=== PATIENT | male | born 1965 | race Caucasian/White ===

== ENCOUNTER → 2016-10-26 | Outpatient (CLI) | payer BC ==
[~2016-10-26] MED LIST: LIDOCAINE 1% MDV 20ML VIAL As Ordered ONE; LIDOCAINE 4% CREAM 5GM (LMX4) As Ordered ONE; SODIUM TETRADECYL SULFATE(3%)30MG/ML 2ML VIAL (SOTRADECOL) As Ordered ONE
--- NOTE | 2016-10-26 13:06 | REPKIM ---
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 Ultrasound reflux evaluation showed severe reflux in the greater saphenous vein and anterior accessory greater saphenous vein. This also showed incompetent race and sports book writer vein at the calf level. Reflux of 6.9 seconds was observed in the anterior accessory greater saphenous vein. 2.3-second duration reflux was observed in the greater saphenous vein at the saphenofemoral junction. The GSV measures 7.8 mm in AP dimension at this level. 6 seconds of reflux was observed in the greater saphenous vein at mid thigh where the vein measures 5.4 mm. 7.1-second duration reflux was observed in the greater saphenous vein at the knee where the vein measures 5.0 mm. Patient has failed conservative treatment; c/o persistent symptoms that are refractory more than a 3 month course of conservative therapy; utilization of compressive stockings and leg elevation. PROCEDURE: 1. Endovenous laser ablation therapy of the incompetent GSV on the left 2. Sclerotherapy of the incompetent significant aa GSV distribution lateral thigh/lateral calf varicosities on the left 3. 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 Lot#[id number] TECHNIQUE AND FINDINGS: Informed consent was obtained prior to the procedure. The patient was placed supine on the table. A time out was performed that verified correct procedure, site, side and materials available. Ultrasound examination was performed and focused on the saphenofemoral junction of the left leg. This confirmed significant reflux involving the greater saphenous vein as previously described. This also showed significant reflux involving aaGSV with significant varicosities extending into the lateral thigh/below knee. The aa GSV distribution varicosities showed marked tortuosity and not suitable for EVLT. US also localized incompetent race and sports book writer and significant varicosities at the medial calf level. The left lower extremity was prepped and draped in the usual sterile fashion. After local anesthesia with 1mL of lidocaine 1% at the skin, the incompetent greater saphenous vein just above the knee level was accessed with a 21 gauge needle and a 0.018" wire followed by a 4 Lao sheath of the EVLT kit. The sheath was advanced over the wire to the saphenofemoral junction level and the laser fiber was advanced coaxially and its tip was positioned approximately 5 cm distal from the saphenofemoral junction. Tumescent anesthesia was given along this vein by using real-time ultrasonographic guidance and a 22 gauge spinal needle and a mixture of diluted lidocaine (12.5mL @ 2% in 237.5mL of normal saline). Endovenous laser ablation was applied along the greater saphenous vein using 6 Pike in continuous mode for a total duration of 269 seconds. A total of 1611 Joules was delivered. Significant tortuous varicosities in the aa GSV at the proximal thigh was then accessed with a micropuncture needle. A microcatheter was then placed over a guidewire. Approximately 2 mL of sclerotherapy foam (1mL sodium tetradecyl sulfate diluted at 1.5 %) mixed with air at a ratio of 1:4 injected. Compression was maintained at the saphenofemoral junction to prevent non-target sclerosis. Significant tortuous varicosities in the aa GSV tributaries in the lateral distal thigh extending below knee level was then accessed with a butterfly needle. Approximately 2 mL of sclerotherapy foam (1mL sodium tetradecyl sulfate diluted at 1.5 %) mixed with air at a ratio of 1:4 injected. Compression was maintained. Significant varicosities/incompetent race and sports book writer in the medial calf level was then accessed with a butterfly needle. Approximately 2 mL of sclerotherapy foam (1mL sodium tetradecyl sulfate diluted at 1.5 %) mixed with air at a ratio of 1: 4 injected. Compression was maintained. SteriStrips was applied on the skin, followed by 20-30 mm Hg compression stockings. The patient was then allowed to stand and instructed to walk for 15 minutes. He was then discharged back home in good and stable condition with no immediate complication. This procedure was performed with ultrasound guidance. Dr. Conroy was present. IMPRESSION: 1. Bilateral lower extremity symptomatic painful varicose veins and other complications. 2. Successful treatment of symptomatic incompetent GSV in the left lower extremity by endovenous laser ablation. 3. Significant left lower extremity incompetent aa GSV distribution in the lateral thigh and incompetent race and sports book writer in the medial calf/significant varicosities also treated with sclerotherapy as discussed above. PLAN: Pt was given post-procedure instructions, including contact information for a follow-up duplex ultrasound of the left lower extremity to rule out DVT and post EVLT/sclerotherapy evaluation in next several days. Plan to treat the right lower extremity in next several weeks. cc: ALIREZA Rincon [facility]ITALGoyo
== END | disposition home or self-care (01) ==
LOC: M IRPRO 08:02
DX: I83.813 Varicose veins of bilateral lower extremities with pain (principal); I83.893 Varicose veins of bilateral lower extremities with other complications
CPT/HCPCS: 36471; 36478; C1888; C1894

== ENCOUNTER → 2016-10-29 | Outpatient (CLI) | payer BC ==
--- NOTE | 2016-10-29 10:46 | REP ---
LEFT LOWER EXTREMITY DOPPLER VENOUS ULTRASOUND: 10/29/2016. Comparison: 07/02/2016. Clinical history: Status post EVLT left lower extremity, evaluate for DVT or other. Findings: Sonographic evaluation with standard duplex techniques through the deep venous system from the groin to popliteal fossa and proximal calf show the deep veins fully compressible throughout their course. There is respiratory variation and augmented flow from the common femoral through popliteal vein at its trifurcation. There is respiratory variation and augmented flow and color is maintained throughout the deep system. Greater saphenous vein is fully clotted now as would be expected post EVLT. There is a clotted collateral in the medial upper calf. At the lateral thigh, the prominent vascularity is clotted from the previous puncture site inferiorly but is patent in its proximal portion. Impression: 1. No ultrasound evidence of DVT in the left lower extremity. 2. There is a clotting of the GSV as expected as well as a medial calf collateral vein also clotted. 3. The lateral thigh varicosity is clotted from its puncture site inferiorly while its portion proximal to that puncture site remains patent. Signed by Kenneth Laughlin MD 10/29/2016 04:20 P
== END ==
LOC: M RAD 08:20
DX: I83.92 Asymptomatic varicose veins of left lower extremity (principal)

== ENCOUNTER → 2016-11-23 | Outpatient (CLI) | payer BC ==
[~2016-11-23] MED LIST changes: -LIDOCAINE 1% MDV 20ML VIAL As Ordered ONE; +LIDOCAINE 2% MDV 20 ML VIAL As Ordered ONE
--- NOTE | 2016-11-23 12:45 | REPKIM ---
INDICATION: Patient with symptomatic painful bilateral lower extremity varicose veins and complications present for right lower extremity EVLT of the incompetent GSV, possible sclerotherapy of collateral tributaries. Patient underwent successful EVLT/sclerotherapy of the left lower extremity on 10/26/16 and now returns for his right lower extremity treatment. Duplex reflux study of the right leg showed significant reflux involving the greater saphenous vein. The right GSV at the saphenofemoral junction showed reflux with duration of 4.7 seconds and AP diameter 6.0 mm, and at the level of the mid thigh for a duration of 7.2 seconds with AP diameter 5.2 mm. The distal GSV with reflux duration of 2.7 seconds with AP diameter of 7.9 mm. Patient has failed conservative treatment; utilization of compressive stockings and leg elevation. PROCEDURE: Endovenous laser ablation therapy of the incompetent GSV on the right INTERVENTIONALIST: Jayleen Conroy MD EBL: 5 mL MEDICATIONS: Local Lidocaine and Sodium Tetradecyl Sulfate 3% diluted to 1.5% DEVICE USED: 45-CM [facility]ure EVLT [facility] Lot#[id number] TECHNIQUE AND FINDINGS: Informed consent was obtained prior to the procedure. The patient was placed supine on the table. A time out was performed that verified correct procedure, site, side and materials available. Ultrasound examination was performed and focused on the saphenofemoral junction of the right leg. This confirmed significant reflux involving the greater saphenous vein as previously described. Collateral tributary varicosities noted in the distal thigh extending below. The right lower extremity was prepped and draped in the usual sterile fashion. After local anesthesia with 1mL of lidocaine 1% at the skin, the incompetent greater saphenous vein/collateral vein above the knee level was accessed with a 21 gauge needle and a 0.018" wire followed by a 4 Mongolian sheath of the EVLT kit. The sheath was advanced over the wire to the saphenofemoral junction level and the laser fiber was advanced coaxially and its tip was positioned approximately 5 cm distal from the saphenofemoral junction. Tumescent anesthesia was given along this vein by using real-time ultrasonographic guidance and a 22 gauge spinal needle and a mixture of diluted lidocaine (12.5mL @ 2% in 237.5mL of normal saline). Endovenous laser ablation was applied along the greater saphenous vein using 6 Pike in continuous mode for a total duration of 195.6 seconds. A total of 1173 Joules was delivered. Ultrasonography showed shrunken and hyper-echoic of the ablated vein as usually , with persistent fully compressibility of deep veins. The introducer sheath was then withdrawn and positioned in the distal thigh collateral varicosity. Approximately 2 mL of sclerotherapy foam (1mL sodium tetradecyl sulfate diluted at 1.5 %) mixed with air at a ratio of 1:4 injected. Compression was maintained. SteriStrips was applied on the skin, followed by 20-30 mm Hg compression stockings. The patient was then allowed to stand and instructed to walk for 15 minutes. He was then discharged back home in good and stable condition with no immediate complication. This procedure was performed with ultrasound guidance. Dr. Conroy was present. IMPRESSION: 1. Bilateral lower extremity symptomatic painful varicose veins and other complications. Patient underwent successful EVLT/sclerotherapy of the left leg in Oct 2016. 2. Successful treatment of symptomatic incompetent GSV in the right lower extremity by endovenous laser ablation and sclerotherapy as discussed above. PLAN: Pt was given post-procedure instructions, including contact information for a follow-up duplex ultrasound of the right lower extremity to rule out DVT and post EVLT/sclerotherapy evaluation in next several days. cc: ALIREZA Rincon
== END | disposition home or self-care (01) ==
LOC: M IRPRO 08:03
DX: I83.813 Varicose veins of bilateral lower extremities with pain (principal); I83.893 Varicose veins of bilateral lower extremities with other complications; I82.409 Acute embolism and thrombosis of unspecified deep veins of unspecified lower extremity
CPT/HCPCS: 36478; C1888

== ENCOUNTER → 2016-11-26 | Outpatient (CLI) | payer BC ==
--- NOTE | 2016-11-26 10:48 | REP ---
Right lower extremity Duplex Doppler venous ultrasound: Real time compression and duplex Doppler interrogation of the right lower extremity deep venous system is performed. The right common femoral, superficial femoral and popliteal veins are fully compressible with transducer pressure and demonstrate normal spontaneous and phasic flow, without evidence of deep venous thrombosis. Impression: No evidence of deep venous thrombosis of the right lower extremity femoral popliteal venous system. There is thrombus in the greater saphenous vein as expected, 1.2 cm from the saphenofemoral junction. Signed by Surjit Hillman MD 11/26/2016 10:38 A
== END ==
LOC: M RAD 09:33
DX: I82.811 Embolism and thrombosis of superficial veins of right lower extremity (principal)

== ENCOUNTER 2017-02-23 07:54 | Emergency (ER) | payer BC ==
[~2017-02-23] VITALS: Ht 185.4 cm; Wt 95.3 kg
[2017-02-23] MEDS ORDERED: METHOCARBAMOL 500 MG TAB PO ONE (09:30)
[2017-02-23] MEDS ORDERED: KETOROLAC 60 MG/2 ML VIAL (J1885) IM ONE (09:30)
[2017-02-23] MEDS ORDERED: ROBA500T PO (09:33)
[2017-02-23] MEDS ORDERED: IBUP80TA PO (09:33)
[2017-02-23 09:57] VITALS: BP 144/91
== END 2017-02-23 09:58 | disposition home or self-care (01) ==
LOC: M ED 08:39
DX: S39.012A Strain of muscle, fascia and tendon of lower back, initial encounter (principal); X58.XXXA Exposure to other specified factors, initial encounter; Y92.89 Other specified places as the place of occurrence of the external cause; Y93.89 Activity, other specified; Y99.8 Other external cause status
CPT/HCPCS: 96372; 99282; J1885

== ENCOUNTER → 2019-03-31 | Outpatient (REF) | payer OTHER ==
[~2019-03-31] MED LIST changes: +IBUP80TA PO; -LIDOCAINE 2% MDV 20 ML VIAL As Ordered ONE; -LIDOCAINE 4% CREAM 5GM (LMX4) As Ordered ONE; +ROBA500T PO; -SODIUM TETRADECYL SULFATE(3%)30MG/ML 2ML VIAL (SOTRADECOL) As Ordered ONE
[2019-03-31 11:48] LABS: BASO % 0.4 % (0.0-1.0); HEMATOCRIT 42.6 % (42.0-52.0); HEMOGLOBIN 14.7 g/dl (13.5-17.5); LYMPH % 42.2 % (24.0-44.0); MEAN CORPUSCULAR HEMOGLOBIN 30.9 pg (27.0-33.0); MEAN CORPUSCULAR HGB CONC 34.5 g/dl (32.0-36.5); MEAN CORPUSCULAR VOLUME 89.5 fl (80.0-96.0); MONO # 0.5 10^3/uL (0.0-0.8); MONO % 9.8 % (0.0-5.0); NEUTROPHILS # 2.3 10^3/uL (1.8-7.7); NEUTROPHILS % 47.6 % (36.0-66.0); PLATELET COUNT, AUTOMATED 233 10^3/uL (150-450); RED BLOOD COUNT 4.76 10^6/uL (4.30-6.10); WHITE BLOOD COUNT 4.8 10^3/uL (4.0-10.0)
[2019-03-31 12:05] LABS: ALBUMIN 3.8 GM/DL (3.2-5.2); ALT/SGPT 105 U/L (12-78); BILIRUBIN,TOTAL 0.6 MG/DL (0.2-1.0); BLOOD UREA NITROGEN 18 MG/DL (7-18); CALCIUM LEVEL 8.7 MG/DL (8.5-10.1); CARBON DIOXIDE LEVEL 27 MEQ/L (21-32); CHLORIDE LEVEL 109 MEQ/L (98-107); CHOLESTEROL LEVEL 221 MG/DL (<200); CHOLESTEROL RISK RATIO 7.366 (<5); CREATININE FOR GFR 0.92 MG/DL (0.70-1.30); FREE T4 0.85 NG/DL (0.76-1.46); GLOMERULAR FILTRATION RATE > 60.0 (>56); GLUCOSE, FASTING 117 MG/DL (70-100); HDL CHOLESTEROL 30 MG/DL (>40); LDL CHOLESTEROL 130 MG/DL (<100); NON-HDL-C 191 MG/DL; POTASSIUM SERUM 3.9 MEQ/L (3.5-5.1); SODIUM LEVEL 142 MEQ/L (136-145); TOTAL PROTEIN 7.5 GM/DL (6.4-8.2); TRIGLYCERIDES LEVEL 307 MG/DL (<150)
[2019-03-31 12:06] LABS: HEMOGLOBIN A1c 5.9 %
== END ==
LOC: M SFHCCLAY 08:47
PROVIDERS: ATTEND Nurse Practitioner Family
DX: E78.5 Hyperlipidemia, unspecified (principal); K21.9 Gastro-esophageal reflux disease without esophagitis; R73.01 Impaired fasting glucose; K76.0 Fatty (change of) liver, not elsewhere classified

== ENCOUNTER → 2019-05-01 | Outpatient (CLI) | payer OTHER ==
[~2019-05-01] MED LIST changes: +ATOR40TA75 PO
[2019-05-01 10:55] LABS: ALBUMIN 4.2 GM/DL (3.2-5.2); ALT/SGPT 87 U/L (12-78); BILIRUBIN,TOTAL 0.6 MG/DL (0.2-1.0); BLOOD UREA NITROGEN 16 MG/DL (7-18); CALCIUM LEVEL 9.1 MG/DL (8.5-10.1); CARBON DIOXIDE LEVEL 28 MEQ/L (21-32); CHLORIDE LEVEL 108 MEQ/L (98-107); CHOLESTEROL LEVEL 161 MG/DL (<200); CHOLESTEROL RISK RATIO 4.128 (<5); CREATININE FOR GFR 0.93 MG/DL (0.70-1.30); GLOMERULAR FILTRATION RATE > 60.0 (>56); GLUCOSE, FASTING 91 MG/DL (70-100); HDL CHOLESTEROL 39 MG/DL (>40); LDL CHOLESTEROL 99 MG/DL (<100); NON-HDL-C 122 MG/DL; POTASSIUM SERUM 4.1 MEQ/L (3.5-5.1); SODIUM LEVEL 142 MEQ/L (136-145); TOTAL PROTEIN 7.7 GM/DL (6.4-8.2); TRIGLYCERIDES LEVEL 114 MG/DL (<150)
== END ==
LOC: M LAB 09:08
PROVIDERS: ATTEND Nurse Practitioner Family
DX: E78.5 Hyperlipidemia, unspecified (principal)

== ENCOUNTER 2019-08-27 07:46 | Day surgery (SDC) | payer OTHER ==
[~2019-08-27] VITALS: Ht 185.4 cm; Wt 96.6 kg
[~2019-08-27 07:46] MED LIST changes: +NS 1,000 ML IV ONE
[2019-08-27] MEDS ORDERED: PROPOFOL 200 MG/20 ML VIAL As Ordered ONE (08:33)
--- NOTE | 2019-08-27 09:28 | ROOR ---
Patient Name: Angel Santizo Procedure Date: 08/27/2019 8:42 AM Date of : 1965 Age: 54 Room: [facility] Gender: Male Note Status: Finalized Procedure: Colonoscopy Indications: Screening for colorectal malignant neoplasm Providers: Walt Wan MD Referring MD: NATHAN Arriaga Requesting Provider: Medicines: Monitored Anesthesia Care Complications: No immediate complications. Procedure: Pre-Anesthesia Assessment: - Prior to the procedure, a History and Physical was performed, and patient medications and allergies were reviewed. The patient is competent. The risks and benefits of the procedure and the sedation options and risks were discussed with the patient. All questions were answered and informed consent was obtained. Patient identification and proposed procedure were verified by the physician, the nurse and the anesthesiologist in the procedure room. Mental Status Examination: alert and oriented. Airway Examination: normal oropharyngeal airway and neck mobility. Respiratory Examination: clear to auscultation. CV Examination: normal. Prophylactic Antibiotics: The patient does not require prophylactic antibiotics. Prior Anticoagulants: The patient has taken no previous anticoagulant or antiplatelet agents. ASA Grade Assessment: II - A patient with mild systemic disease. After reviewing the risks and benefits, the patient was deemed in satisfactory condition to undergo the procedure. The anesthesia plan was to use monitored anesthesia care (MAC). Immediately prior to administration of medications, the patient was re-assessed for adequacy to receive sedatives. The heart rate, respiratory rate, oxygen saturations, blood pressure, adequacy of pulmonary ventilation, and response to care were monitored throughout the procedure. The physical status of the patient was re-assessed after the procedure. The Colonoscope was introduced through the anus and advanced to the terminal ileum, with identification of the appendiceal orifice and IC valve. The colonoscopy was performed without difficulty. The patient tolerated the procedure well. The quality of the bowel preparation was good. The ileocecal valve, appendiceal orifice, and rectum were photographed. Scope insertion time was 4 minutes. Scope withdrawal time was 10 minutes. The total duration of the procedure was 14 minutes. Findings: The perianal and digital rectal examinations were normal. The terminal ileum appeared normal. Two sessile polyps were found in the ascending colon. The polyps were 5 to 8 mm in size. These polyps were removed with a cold snare. Resection and retrieval were complete. Verification of patient identification for the specimen was done by the physician and nurse using the patient's name, date and medical record number. Estimated blood loss was minimal. A 4 mm polyp was found in the descending colon. The polyp was sessile. The polyp was removed with a cold snare. Resection and retrieval were complete. Two sessile polyps were found in the recto-sigmoid colon. The polyps were 4 to 6 mm in size. These polyps were removed with a cold snare. Resection and retrieval were complete. Non-bleeding external and internal hemorrhoids were found during retroflexion. The hemorrhoids were medium-sized. Impression: - The examined portion of the ileum was normal. - Two 5 to 8 mm polyps in the ascending colon, removed with a cold snare. Resected and retrieved. - One 4 mm polyp in the descending colon, removed with a cold snare. Resected and retrieved. - Two 4 to 6 mm polyps at the recto-sigmoid colon, removed with a cold snare. Resected and retrieved. - Non-bleeding external and internal hemorrhoids. Recommendation: - Patient has a contact number available for emergencies. The signs and symptoms of potential delayed complications were discussed with the patient. Return to normal activities tomorrow. Written discharge instructions were provided to the patient. - High fiber diet. - Continue present medications. - Await pathology results. - Use fiber, for example Citrucel, Fibercon, Konsyl or Metamucil. - Repeat colonoscopy in 3 - 5 years for surveillance based on pathology results. - Telephone GI clinic for pathology results in 2 weeks. - Return to primary care physician. Walt Wan MD Walt Wan MD 08/27/2019 9:27:47 AM Electronically signed by Walt Wan MD Number of Addenda: 0 Note Initiated On: 08/27/2019 8:42 AM Estimated Blood Loss: Estimated blood loss was minimal.
[2019-08-27 09:45] VITALS: BP 135/83
== END 2019-08-27 09:58 | disposition home or self-care (01) ==
LOC: M OPP 07:46
PROVIDERS: ATTEND Internal Medicine Gastroenterology
DX: Z12.11 Encounter for screening for malignant neoplasm of colon (principal); K64.8 Other hemorrhoids; D12.2 Benign neoplasm of ascending colon; D12.7 Benign neoplasm of rectosigmoid junction; D12.4 Benign neoplasm of descending colon; E78.5 Hyperlipidemia, unspecified; F32.9 Major depressive disorder, single episode, unspecified; Z79.899 Other long term (current) drug therapy

== ENCOUNTER 2020-11-21 07:41 | Emergency (ER) | payer OTHER ==
[~2020-11-21] VITALS: Ht 185.4 cm; Wt 106.6 kg
[~2020-11-21 07:41] MED LIST changes: -NS 1,000 ML IV ONE
--- NOTE | 2020-11-21 08:36 | REP ---
INDICATION: trauma, right posterior ribs COMPARISON: None. TECHNIQUE: Frontal view of the chest with multiple views of the right hemithorax. Five total views. FINDINGS: Frontal view of the chest demonstrates no acute cardiopulmonary process, contusion, effusion, or pneumothorax. Multiple views of the right hemithorax demonstrates no acute rib fracture/injury or pathology. IMPRESSION: Normal rib series. <Electronically signed by Krzysztof Milner > 11/21/20 0832
[2020-11-21 09:00] VITALS: BP 134/79
== END 2020-11-21 09:17 | disposition home or self-care (01) ==
LOC: M ED 07:41
DX: S23.41XA Sprain of ribs, initial encounter (principal); W00.0XXA Fall on same level due to ice and snow, initial encounter; Y92.9 Unspecified place or not applicable; Y93.9 Activity, unspecified; Y99.0 Civilian activity done for income or pay

== ENCOUNTER → 2020-12-02 | Outpatient (REF) | payer OTHER ==
[2020-12-02 13:30] LABS: ALBUMIN 4.3 GM/DL (3.2-5.2); ALT/SGPT 63 U/L (12-78); BILIRUBIN,TOTAL 0.5 MG/DL (0.2-1.0); BLOOD UREA NITROGEN 22 MG/DL (7-18); CALCIUM LEVEL 9.6 MG/DL (8.5-10.1); CARBON DIOXIDE LEVEL 31 MEQ/L (21-32); CHLORIDE LEVEL 109 MEQ/L (98-107); CHOLESTEROL LEVEL 229 MG/DL (<200); CHOLESTEROL RISK RATIO 5.725 (<5); CREATININE FOR GFR 1.11 MG/DL (0.70-1.30); GLOMERULAR FILTRATION RATE > 60.0 (>56); GLUCOSE, FASTING 92 MG/DL (70-100); HDL CHOLESTEROL 40 MG/DL (>40); LDL CHOLESTEROL 150 MG/DL (<100); NON-HDL-C 189 MG/DL; POTASSIUM SERUM 4.6 MEQ/L (3.5-5.1); SODIUM LEVEL 143 MEQ/L (136-145); TOTAL PROTEIN 7.8 GM/DL (6.4-8.2); TRIGLYCERIDES LEVEL 197 MG/DL (<150)
[2020-12-02 14:06] LABS: HEMOGLOBIN A1c 6.6 %
== END ==
LOC: M SFHCADAM 08:06
PROVIDERS: ATTEND Physician Assistant Medical
DX: K76.0 Fatty (change of) liver, not elsewhere classified (principal); R73.01 Impaired fasting glucose

== ENCOUNTER → 2021-01-25 | Outpatient (REF) | payer OTHER | LOC: M SFHCADAM 15:39 | PROVIDERS: ATTEND Physician Assistant Medical | DX: E03.9 Hypothyroidism, unspecified (principal) ==

== ENCOUNTER → 2021-03-08 | Outpatient (REF) | payer OTHER ==
[2021-03-08 12:21] LABS: FREE T4 1.07 NG/DL (0.76-1.46); THYROID STIMULATING HORMONE 3.65 uIU/ML (0.358-3.740)
== END ==
LOC: M SFHCADAM 09:06
PROVIDERS: ATTEND Physician Assistant Medical
DX: E03.9 Hypothyroidism, unspecified (principal)

== ENCOUNTER → 2022-12-20 | Outpatient (CLI) | payer OTHER ==
[2022-12-20 16:30] LABS: HEMATOCRIT 43.3 % (42.0-52.0); HEMOGLOBIN 14.4 g/dl (13.5-17.5); MEAN CORPUSCULAR HEMOGLOBIN 29.3 pg (27.0-33.0); MEAN CORPUSCULAR HGB CONC 33.3 g/dl (32.0-36.5); MEAN CORPUSCULAR VOLUME 88.2 fl (80.0-96.0); PLATELET COUNT, AUTOMATED 238 10^3/uL (150-450); RED BLOOD COUNT 4.91 10^6/uL (4.30-6.10); WHITE BLOOD COUNT 6.2 10^3/uL (4.0-10.0)
[2022-12-20 16:39] LABS: HEMOGLOBIN A1c 5.5 % (4.0-6.0)
[2022-12-20 16:52] LABS: PROSTATIC SPECIFIC AG MONITOR 0.17 NG/ML (< 4.00)
[2022-12-20 16:56] LABS: TESTOSTERONE 48 NG/DL (241-827); THYROID STIMULATING HORMONE 2.995 uIU/ML (0.55-4.78)
[2022-12-20 16:57] LABS: ALBUMIN 4.5 G/DL (3.2-5.2); ALKALINE PHOSPHATASE 69 U/L (46-116); ALT/SGPT 43 U/L (7.0-40); AST/SGOT 34 U/L (<34); BILIRUBIN,TOTAL 0.7 MG/DL (0.3-1.2); BLOOD UREA NITROGEN 14 MG/DL (9-23); CALCIUM LEVEL 9.9 MG/DL (8.5-10.1); CARBON DIOXIDE LEVEL 32 MMOL/L (20-31); CHLORIDE LEVEL 105 MMOL/L (98-107); CHOLESTEROL LEVEL 239 MG/DL (<200); CHOLESTEROL RISK RATIO 5.06 (<5); CREATININE FOR GFR 0.78 MG/DL (0.70-1.30); GLOMERULAR FILTRATION RATE > 60.0 (>56); GLUCOSE, FASTING 86 MG/DL (60-100); HDL CHOLESTEROL 47.2 MG/DL (>40); LDL CHOLESTEROL 150.4 MG/DL (<100); NON-HDL-C 191.8 MG/DL; SODIUM LEVEL 139 MMOL/L (136-145); TOTAL PROTEIN 7.9 G/DL (5.7-8.2); TRIGLYCERIDES LEVEL 207 MG/DL (<150)
== END ==
LOC: M RAD 15:03
PROVIDERS: ATTEND Family Medicine
DX: I10 Essential (primary) hypertension (principal)

== ENCOUNTER → 2023-01-28 | Outpatient (CLI) | payer OTHER | LOC: M WHC 13:21 | PROVIDERS: ATTEND Family Medicine | DX: N63.20 Unspecified lump in the left breast, unspecified quadrant (principal) | CPT/HCPCS: 77066; G0279 ==

== ENCOUNTER → 2023-12-05 | Outpatient (CLI) | payer OTHER ==
[2023-12-05 09:42] LABS: HEMATOCRIT 41.8 % (42.0-52.0); MEAN CORPUSCULAR HEMOGLOBIN 29.6 pg (27.0-33.0); MEAN CORPUSCULAR HGB CONC 33.5 g/dl (32.0-36.5); MEAN CORPUSCULAR VOLUME 88.4 fl (80.0-96.0); PLATELET COUNT, AUTOMATED 221 10^3/uL (150-450); RED BLOOD COUNT 4.73 10^6/uL (4.30-6.10)
[2023-12-05 09:58] LABS: HEMOGLOBIN A1c 5.8 % (4.0-6.0)
[2023-12-05 10:05] LABS: PROSTATIC SPECIFIC AG MONITOR 0.11 NG/ML (< 4.00)
[2023-12-05 10:08] LABS: THYROID STIMULATING HORMONE 2.825 uIU/ML (0.55-4.78)
[2023-12-05 10:10] LABS: ALBUMIN 4.1 G/DL (3.2-5.2); ALKALINE PHOSPHATASE 66 U/L (46-116); ALT/SGPT 48 U/L (7.0-40); AST/SGOT 35 U/L (<34); BILIRUBIN,TOTAL 0.5 MG/DL (0.3-1.2); BLOOD UREA NITROGEN 21 MG/DL (9-23); CALCIUM LEVEL 9.5 MG/DL (8.5-10.1); CARBON DIOXIDE LEVEL 31 MMOL/L (20-31); CHLORIDE LEVEL 108 MMOL/L (98-107); CHOLESTEROL LEVEL 152 MG/DL (<200); CHOLESTEROL RISK RATIO 3.84 (<5); CREATININE FOR GFR 0.87 MG/DL (0.70-1.30); GLOMERULAR FILTRATION RATE > 60.0 (>56); GLUCOSE, FASTING 96 MG/DL (60-100); HDL CHOLESTEROL 39.5 MG/DL (>40); LDL CHOLESTEROL 77.3 MG/DL (<100); NON-HDL-C 112.5 MG/DL; POTASSIUM SERUM 4.5 MMOL/L (3.5-5.1); SODIUM LEVEL 143 MMOL/L (136-145); TESTOSTERONE 27 NG/DL (241-827); TOTAL PROTEIN 7.1 G/DL (5.7-8.2); TRIGLYCERIDES LEVEL 176 MG/DL (<150)
== END ==
LOC: M LAB 09:01
PROVIDERS: ATTEND Family Medicine
DX: R53.83 Other fatigue (principal); I10 Essential (primary) hypertension; E03.9 Hypothyroidism, unspecified

== ENCOUNTER → 2024-03-09 | Outpatient (CLI) | payer OTHER ==
[2024-03-09 08:57] LABS: TESTOSTERONE 38 NG/DL (241-827); THYROID STIMULATING HORMONE 5.571 uIU/ML (0.55-4.78)
[2024-03-09 09:15] LABS: HEPATITIS B SURFACE ANTIGEN NEGATIVE (NEGATIVE)
[2024-03-09 09:36] LABS: HEPATITIS B CORE ANTIBODY IGM NEGATIVE (NEGATIVE)
== END ==
LOC: M LAB 06:30
PROVIDERS: ATTEND Family Medicine
DX: R53.83 Other fatigue (principal)

== ENCOUNTER → 2025-01-28 | Outpatient (CLI) | payer OTHER ==
[~2025-01-28] MED LIST changes: +LISI10TA22 PO; +SIMV20TA22 PO; +SYNT75TA PO; +TEST200I14 IM
[2025-01-28 12:34] LABS: HEMATOCRIT 47.8 % (42.0-52.0); HEMOGLOBIN 16.2 g/dl (13.5-17.5); MEAN CORPUSCULAR HEMOGLOBIN 29.6 pg (27.0-33.0); MEAN CORPUSCULAR HGB CONC 33.9 g/dl (32.0-36.5); MEAN CORPUSCULAR VOLUME 87.4 fl (80.0-96.0); PLATELET COUNT, AUTOMATED 207 10^3/uL (150-450); RED BLOOD COUNT 5.47 10^6/uL (4.30-6.10); WHITE BLOOD COUNT 6.4 10^3/uL (4.0-10.0)
[2025-01-28 12:50] LABS: HEMOGLOBIN A1c 5.6 % (4.0-6.0)
[2025-01-28 13:10] LABS: ALBUMIN 4.1 G/DL (3.2-5.2); ALKALINE PHOSPHATASE 63 U/L (40-129); ALT/SGPT 31 U/L (7.0-40); AST/SGOT 22 U/L (<34); BILIRUBIN,TOTAL 0.8 MG/DL (0.3-1.2); BLOOD UREA NITROGEN 10 MG/DL (9-23); CALCIUM LEVEL 9.7 MG/DL (8.5-10.1); CARBON DIOXIDE LEVEL 32 MMOL/L (20-31); CHLORIDE LEVEL 104 MMOL/L (98-107); CHOLESTEROL LEVEL 137 MG/DL (<200); CHOLESTEROL RISK RATIO 3.79 (<5); CREATININE FOR GFR 0.91 MG/DL (0.70-1.30); GLOMERULAR FILTRATION RATE > 90.0 (>56); GLUCOSE, FASTING 100 MG/DL (60-100); HDL CHOLESTEROL 36.1 MG/DL (>40); LDL CHOLESTEROL 73.5 MG/DL (<100); NON-HDL-C 100.9 MG/DL; POTASSIUM SERUM 4.4 MMOL/L (3.5-5.1); PROSTATIC SPECIFIC AG MONITOR 0.66 NG/ML (< 4.00); SODIUM LEVEL 142 MMOL/L (136-145); TOTAL PROTEIN 7.1 G/DL (5.7-8.2); TRIGLYCERIDES LEVEL 137 MG/DL (<150)
[2025-01-28 13:11] LABS: THYROID STIMULATING HORMONE 0.574 uIU/ML (0.55-4.78)
[2025-01-28 13:12] LABS: TESTOSTERONE 1082 NG/DL (241-827)
== END ==
LOC: M LAB 11:48
PROVIDERS: ATTEND Family Medicine
DX: I10 Essential (primary) hypertension (principal); R53.83 Other fatigue; E03.9 Hypothyroidism, unspecified

== ENCOUNTER 2025-02-02 06:50 | Day surgery (SDC) | payer OTHER ==
[~2025-02-02] VITALS: Ht 185.4 cm; Wt 102.6 kg
[2025-02-02 07:48] VITALS: TEMP 97.7
[2025-02-02 08:09] VITALS: BP 142/76; O2SAT 97
== END 2025-02-02 08:50 | disposition home or self-care (01) ==
LOC: M OPP 06:50
PROVIDERS: ATTEND Internal Medicine Gastroenterology
DX: Z12.11 Encounter for screening for malignant neoplasm of colon (principal); D12.0 Benign neoplasm of cecum; Z86.0100 Personal history of colon polyps, unspecified; K64.8 Other hemorrhoids; K21.9 Gastro-esophageal reflux disease without esophagitis; K76.0 Fatty (change of) liver, not elsewhere classified; I10 Essential (primary) hypertension; E03.9 Hypothyroidism, unspecified; E78.00 Pure hypercholesterolemia, unspecified; Z79.899 Other long term (current) drug therapy; Z79.890 Hormone replacement therapy